=== PATIENT | female | born 1960 | race Two or more races ===

== ENCOUNTER 2016-11-05 12:34 | Emergency (ER) | payer OTHER ==
[2016-11-05] MEDS ORDERED: Alum-Mag Hydrox-Simethicone Susp (30 mL) PO STA (14:00)
[2016-11-05] MEDS ORDERED: Alum-Mag Hydrox-Simethicone Susp (30 mL) ONE (14:07)
--- NOTE | 2016-11-05 15:01 | C.PDOC ---
History Of Present Illness Pt c/o "acid reflux". She describes pain in the lower throat area "my esophagus ". Pt states that she is on Omeprazole 40mg daily. She was referred to GI. 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 Time Seen by Provider: 11/05/16 13:46 Chief Complaint (Nursing): Medical Clearance History Per: Patient Onset/Duration Of Symptoms: Days (chronic), Waxing/Waning, Persistent Current Symptoms Are (Timing): Still Present Location Of Pain: Throat Associated Symptoms: Sore Throat Severity: Moderate Additional History Per: Prior Records Past Medical History Reviewed: Historical Data, Nursing Documentation, Vital Signs Vital Signs: Last Vital Signs Temp 97.7 F 11/05/16 12:56 Pulse 83 11/05/16 12:56 Resp 16 11/05/16 12:56 BP 142/85 11/05/16 12:56 Pulse Ox 100 11/05/16 15:05 - Medical History PMH: HTN Family History: States: Unknown Family Hx - Social History Hx Alcohol Use: No Hx Substance Use: No - Immunization History Hx Tetanus Toxoid Vaccination: No Hx Influenza Vaccination: No Hx Pneumococcal Vaccination: No Review Of Systems Except As Marked, All Systems Reviewed And Found Negative. Constitutional: Negative for: Fever, Weakness ENT: Positive for: Throat Pain Respiratory: Positive for: Cough. Negative for: Shortness of Breath, Hemoptysis Gastrointestinal: Negative for: Vomiting, Abdominal Pain Musculoskeletal: Negative for: Back Pain Skin: Negative for: Rash Neurological: Negative for: Weakness, Numbness, Seizures, Altered Mental Status Physical Exam - Physical Exam Appears: Non-toxic, No Acute Distress Skin: Normal Color, Warm, Dry, No Rash Head: Atraumatic, Normacephalic Eye(s): bilateral: PERRL, EOMI Ear(s): Bilateral: Normal Oral Mucosa: Moist, No Drooling, No Trismus Tongue: Normal Appearing Lips: Normal Appearing Throat: Erythema, No Exudate, No Drooling, No Mass Neck: Normal ROM, Supple, Other (mobile mass in right upper neck (pt states she had it for 5 years and is an "adenoma" for which she is getting surgery to remove it tomorrow). ) Cardiovascular: Rhythm Regular Respiratory: Normal Breath Sounds, No Accessory Muscle Use Gastrointestinal/Abdominal: Soft, No Tenderness Back: No CVA Tenderness Extremity: Normal ROM, No Pedal Edema, No Calf Tenderness Neurological/Psych: Oriented x3, Normal Speech, Normal Motor, Normal Sensation ED Course And Treatment ECG: Interpreted By Me, Viewed By Me ECG Rhythm: Sinus Rhythm ECG Interpretation: No Acute Changes Rate From EC O2 Sat by Pulse Oximetry: 100 Pulse Ox Interpretation: Normal - Radiology CXR: Interpreted by Me, Viewed By Me CXR Interpretation: Yes: No Acute Disease Progress - Interventions Interventions:: Observation - Medications Administered Oral: Antacid, Antiemetic, H-2 rosy - Data Reviewed Data Reviewed: Diagnostic imaging, EKG, Old records - Patient Status Patient status: Mostly improved - Continuity of Care Discussed patient case with:: Patient, ED Nurse - Patient Plan Patient Plan: Discharge, F/U with PCP, Continue present meds Disposition Counseled Patient/Family Regarding: Studies Performed, Diagnosis, Need For Followup, Rx Given - Disposition Referrals: [facility] at [facility] [Outside] Disposition: HOME/ ROUTINE Disposition Time: 15:05 Condition: IMPROVED Additional Instructions: Follow up for your surgery tomorrow. Follow up in the clinic for further evaluation and treatment. Return to the ER if you develop chest pain, shortness of breath, worsening of symptoms or if you have any other concerns. Prescriptions: Calcium Carbonate/Simethicone [Maalox Advanced 1000 mg-60 mg] 1 ctb PO Q6 PRN # 30 ctb PRN Reason: Heartburn Instructions: Gastroesophageal Reflux Disease (ED) Print Language: MACEDONIAN - Clinical Impression Clinical Impression: Acid reflux
[2016-11-05 15:32] VITALS: BP 130/82; PULSE 68; RESP 18; TEMP 98.1; O2SAT 99
--- NOTE | 2016-11-05 15:37 | RAD ---
HISTORY: Cough, "esophagus pain" COMPARISON: None available TECHNIQUE: Chest PA and lateral FINDINGS: LUNGS: No focal consolidation. Please note that chest x-ray has limited sensitivity for the detection of pulmonary masses. PLEURA: No significant pleural effusion identified. No definite pneumothorax . CARDIOVASCULAR: The cardiomediastinal silhouette appears within normal limits of size. OSSEOUS STRUCTURES: Degenerative changes of the spine. VISUALIZED UPPER ABDOMEN: Unremarkable. OTHER FINDINGS: None. IMPRESSION: No focal consolidation, significant pleural effusion, or definite pneumothorax identified.
--- NOTE | 2016-11-07 11:55 | CARD ---
APPROVED REPORT EKG Measurement Heart [id number] <Conclusion> Normal sinus rhythm Normal ECG
== END 2016-11-05 15:31 | disposition home or self-care (01) ==
LOC: C.ER 12:34
DX: K21.9 Gastro-esophageal reflux disease without esophagitis (principal)